=== PATIENT | female | born 1990 | race Caucasian/White ===

== ENCOUNTER 2016-10-11 14:05 | Emergency (ER) | payer OTHER ==
[2016-10-11 14:20] VITALS: BP 127/55; PULSE 71; TEMP 98.1; BMI 33.6
--- NOTE | 2016-10-11 14:44 | PDOC ---
History of Present Illness - General Chief Complaint: Injury Stated Complaint: INJURY Time Seen by Provider: 10/11/16 14:28 History Source: Patient Exam Limitations: No Limitations - History of Present Illness Initial Comments: 10/11/16 14:39 26 yr female with c/o cut to her inside upper lip last night at 11pm at work states the handle form a cart hit into her mouth. 10/11/16 14:44 Occurred: reports: yesterday Severity: reports: mild Method of Injury: Yes: direct blow Modifying Factors: improves with: None Loss of Consciousness: no loss of consciousness Associated Symptoms (Fall): denies symptoms Past History - Past Medical History Allergies/Adverse Reactions: Allergies Allergy/AdvReac Type Severity Reaction Status Date / Time Penicillins Allergy Unknown Rash Verified 10/11/16 14:09 apples Allergy Severe Swelling Uncoded 10/11/16 14:09 Home Medications: Ambulatory Orders NK [No Known Home Medication] 12/02/14 Anemia: No Asthma: Yes Cancer: No Cardiac Disorders: No CVA: No COPD: No CHF: No Dementia: No Diabetes: No GI Disorders: No Disorders: No HTN: No Hypercholesterolemia: No Liver Disease: No Suicide Attempt (Hx): No Seizures: No Thyroid Disease: No - Surgical History Abdominal Surgery: No Appendectomy: No Cardiac Surgery: No Cholecystectomy: No Lung Surgery: No Neurologic Surgery: No Orthopedic Surgery: No - Reproductive History (#): 2 Para: 2 - Immunization History Immunization Up to Date: No - Psycho/Social/Smoking Cessation Hx Anxiety: No Suicidal Ideation: No Smoking Status: No Smoking History: Never smoked Have you smoked in the past 12 months: No Number of Cigarettes Smoked Daily: 0 Cigars Per Day: 0 Information on smoking cessation initiated: No Hx Alcohol Use: No Drug/Substance Use Hx: No Substance Use Type: None Hx Substance Use Treatment: No Trauma Specific PMHX - Complaint Specific PMHX Arthritis: No Back Injury: No Neck Injury: No Hx Sacro Iliac Joint Dysfunction: No Review of Systems - Review of Systems Able to Perform ROS?: Yes Is the patient limited Uzbek proficient: No Constitutional: No: Symptoms Reported HEENTM: Yes: See HPI *Physical Exam - Vital Signs Last Vital Signs Temp Pulse Resp BP Pulse Ox 98.1 F 71 19 127/55 99 10/11/16 14:07 10/11/16 14:07 10/11/16 14:07 10/11/16 14:07 10/11/16 14:07 - Physical Exam General Appearance: Yes: Nourished, Appropriately Dressed HEENT: positive: EOMI, HORTENSIA, Other (frenulum upper lip with superficial laceration 0.5cm no bleeding teeth intact) Neck: positive: Supple. negative: Tender Respiratory/Chest: positive: Lungs Clear, Normal Breath Sounds Cardiovascular: positive: Regular Rhythm, Regular Rate *DC/Admit/Observation/Transfer Diagnosis at time of Disposition: Laceration of mouth Qualifiers: Encounter type: initial encounter Qualified Code(s): S01.512A - Laceration without foreign body of oral cavity, initial encounter - Discharge Dispostion Disposition: HOME Condition at time of disposition: Good - Referrals Referrals: Rupa Hernandez MD [Primary Care Provider] - - Patient Instructions Additional Instructions: gargle with warm salt water 4-5 times a day and after meals soft foods for the next 24hrs ice pops, ice packs to the area of pain every 2hrs for 15 minutes will help with any swelling good oral hygeine will help reduce any bacteria in the wound follow with your dentist as needed
== END 2016-10-11 14:45 | disposition home or self-care (01) ==
LOC: JERFT 14:05
DX: S01.512A Laceration without foreign body of oral cavity, initial encounter (principal); W22.8XXA Striking against or struck by other objects, initial encounter; Y93.89 Activity, other specified; Y92.512 Supermarket, store or market as the place of occurrence of the external cause; Y99.0 Civilian activity done for income or pay
CPT/HCPCS: 99281-25

== ENCOUNTER 2018-06-02 12:02 | Emergency (ER) | payer OTHER ==
--- NOTE | 2018-06-02 12:13 | PDOC ---
Attending Attestation - Resident Resident Name: JagjitGeorgia - ED Attending Attestation I have performed the following: I have examined & evaluated the patient, The case was reviewed & discussed with the resident, I agree w/resident's findings & plan, Exceptions are as noted - HPI HPI: 06/02/18 13:10 Ms Saleh is a 28 yo F who presents to the ER with a complaint of headache Pt reports headache x 10 days, described as throbbing, unilateral, constant, (+ ) nausea, no vomiting. No photophobia, no phonophobia Similar to prior H/A (but typically headaches last 1-2 days, not this long) Has been taking Excedrin (500 mg) with little relief of her headache prompting her to come to the ED today. No fevers or chills No neck pain No head trauma 06/03/18 07:47 - Physicial Exam PE: 06/02/18 13:12 GENERAL: The patient is in no acute distress. HEAD: Normal EYES: PERRLA, EOMI, sclera anicteric, conjunctiva clear. ENT: Ears normal, nares patent, oropharynx clear without exudates. Moist mucous membranes. NECK: Normal range of motion, supple LUNGS: Breath sounds equal, clear to auscultation bilaterally. HEART:Regular rate and rhythm, normal S1 and S2 without murmur, rub or gallop. ABDOMEN: Soft, nontender, normoactive bowel sounds. EXTREMITIES: Normal range of motion NEUROLOGICAL: Cranial nerves II through XII grossly intact. Normal speech. No focal neurological deficits. SKIN: Warm, Dry, - Medical Decision Making 06/03/18 07:50 Laboratory Tests 06/02/18 12:40 Urine HCG, Qual Negative Pt given: Toradol, Reglan, Benadryl, IVF Pt re assessed Headache has resolved Pt asked to follow up with Neurologist Return to the ER for any other concerns or complaints Clinical Impression: migraine, initial presentation
[2018-06-02 12:16] VITALS: BP 122/82; PULSE 65; TEMP 98.3; BMI 35.1
--- NOTE | 2018-06-02 12:28 | PDOC ---
History of Present Illness - General Chief Complaint: Migraine Headache Stated Complaint: MIGRAINE HEADACHE Time Seen by Provider: 06/02/18 12:12 - History of Present Illness Initial Comments: 06/02/18 12:27 The patient is a 28 year old female who presents with a 10 day h/o headache. Patient states the headache is throbbing, unilateral, constant, global with associated nausea but no vomiting. No photophobia, visual changes, AMS. States headache pain is consistent w/previous headaches which she experiences weekly that usually last 1-2 days. Has been taking Excedrin (500 mg) as much as 6 times daily with little relief of her headache prompting her to come to the ED today. The patient denies any recent head trauma/injury, neck pain, neck stiffness, trouble sleeping or walking. The patient further denies any chest pain, shortness of breath, abdominal pain, nausea/vomiting, diarrhea/ constipation, dysuria/hematuria. Allergy: Penicillin Social: denies toxic habits As per EMR, patient evaluated for headache in [address] and subsequent MRI were negative for aneursym. Patient discharged home to follow up with neurology. Patient states she did see the neurologist for an evaluation but did not follow-up for further evaluation. 06/02/18 15:35 Past History - Past Medical History Allergies/Adverse Reactions: Allergies Allergy/AdvReac Type Severity Reaction Status Date / Time Penicillins Allergy Unknown Rash Verified 06/02/18 12:10 apples Allergy Severe Swelling Uncoded 06/02/18 12:10 Home Medications: Ambulatory Orders Albuterol Sulfate Inhaler - [Ventolin Hfa Inhaler -] 2 inh PO Q6H PRN 06/02/18 Aspirin/Acetaminophen/Caffeine [Excedrin Migraine Caplet] 2 each PO PRN PRN Anemia: No Asthma: Yes Cancer: No Cardiac Disorders: No CVA: No COPD: No CHF: No Dementia: No Diabetes: No GI Disorders: No Disorders: No HTN: No Hypercholesterolemia: No Liver Disease: No Seizures: No Thyroid Disease: No Other medical history: HEADACHES - Surgical History Abdominal Surgery: No Appendectomy: No Cardiac Surgery: No Cholecystectomy: No Lung Surgery: No Neurologic Surgery: No Orthopedic Surgery: No - Reproductive History (#): 2 Para: 2 - Immunization History Immunization Up to Date: No - Suicide/Smoking/Psychosocial Hx Smoking Status: No Smoking History: Never smoked Have you smoked in the past 12 months: No Number of Cigarettes Smoked Daily: 0 Cigars Per Day: 0 Hx Alcohol Use: Yes (SOCIAL) Drug/Substance Use Hx: No Substance Use Type: None Hx Substance Use Treatment: No *Physical Exam - Vital Signs Last Vital Signs Temp Pulse Resp BP Pulse Ox 98.3 F 65 16 122/82 99 06/02/18 12:08 06/02/18 12:08 06/02/18 12:08 06/02/18 12:08 06/02/18 12:08 - Physical Exam Comments: 06/02/18 15:25 GENERAL: (+) Uncomfortable appearing. The patient is awake, alert, and fully oriented, in no acute distress. HEAD: Normal with no signs of trauma. EYES: Pupils equal, round and reactive to light, extraocular movements intact, sclera anicteric, conjunctiva clear with no pallor. ENT: Ears normal, nares patent, oropharynx clear without exudates. Moist mucous membranes. NECK: Normal range of motion, supple without lymphadenopathy, JVD, or masses. LUNGS: Breath sounds equal, clear to auscultation bilaterally. No wheeze/ crackles. HEART: Regular rate and rhythm, normal S1 and S2 without murmur or rub. ABDOMEN: Soft/nontender/nondistended. BS wnl. No guarding or rebound. No palpable masses. No hepatosplenomegaly. EXTREMITIES: Normal range of motion, no edema. No clubbing or cyanosis. No cords, erythema, or tenderness. NEUROLOGICAL: Mental status: The patient is alert and oriented x3. Cranial nerves: Cranial nerves II through XII are intact Motor: The upper extremities are 5 over 5 in all muscle groups. The lower extremities are 5 over 5 in all muscle groups. No pronator drift. Sensation: Sensation is intact to light touch throughout. Cerebellar: [id number] is normal in both upper extremities. Reflexes: 2+ and symmetric in the upper and lower extremities. PSYCH: Normal mood, normal affect. SKIN: Warm, Dry, normal turgor, no rashes or lesions noted. Moderate Sedation - Procedure Monitoring Vital Signs: Procedure Monitoring Vital Signs Temperature 98.3 F 06/02/18 12:08 Pulse Rate 65 06/02/18 12:08 Respiratory Rate 16 06/02/18 12:08 Blood Pressure 122/82 02/23/19 12:08 O2 Sat by Pulse Oximetry (%) 99 06/02/18 12:08 Medical Decision Making - Medical Decision Making 06/02/18 12:36 28 year old female with migraine. VS unremarkable. No fever, neck stiffness, reports pain c/w previous migraines. Frontal diagnosis: Migraine vs. SAH (less likely) vs. CVA (less likey) Urine + headache cocktail. Will refrain from CT at this time given previous imaging and clinical picture c/w headache. Reassess. 06/02/18 13:46 Patient reassessed @ bedside Symptomatically improved, ambulatory. Will discharge home with neurology follow-up and return precautions. *DC/Admit/Observation/Transfer Diagnosis at time of Disposition: Headache - Discharge Dispostion Disposition: HOME Condition at time of disposition: Good Decision to Admit order: No - Referrals Referrals: Davon Zapien MD [Staff Physician] - - Patient Instructions Printed Discharge Instructions: DI for Migraine Additional Instructions: Please make an appointment with Dr. Zapien (a neurologist) for evaluation of your headaches or you can call your insurance company for a list of referrals. You can take Tylenol (up to 3200 mg daily) for your headaches. We have provided discharge instructions for a headache which includes limiting screen time (phone/television/computer) as well as getting plenty of sleep and drinking fluid. Return to the Emergency Department for any new/worsening/concerning symptoms. - Post Discharge Activity
[2018-06-02] MEDS ORDERED: KETOROLAC TROMETHAMINE 30 MG/1 ML VIAL IVPUSH ONE (12:31)
[2018-06-02] MEDS ORDERED: METOCLOPRAMIDE HCL INJECTION 10 MG/2 ML VIAL IVPUSH ONE (12:31)
[2018-06-02] MEDS ORDERED: KETOROLAC TROMETHAMINE 30 MG/1 ML VIAL ONE (12:40)
[2018-06-02] MEDS ORDERED: METOCLOPRAMIDE HCL INJECTION 10 MG/2 ML VIAL ONE (12:40)
== END 2018-06-02 14:08 | disposition home or self-care (01) ==
LOC: FER 12:02
PROC: 3E033GC Introduction of Other Therapeutic Substance into Peripheral Vein, Percutaneous Approach (ICD-10-PCS; principal; 2018-06-02)
PROC: 3E0333Z Introduction of Anti-inflammatory into Peripheral Vein, Percutaneous Approach (ICD-10-PCS; 2018-06-02)
DX: R51 Headache (principal); J45.909 Unspecified asthma, uncomplicated
CPT/HCPCS: 84703; 99282-25

== ENCOUNTER 2018-06-04 09:45 | Emergency (ER) | payer OTHER ==
--- NOTE | 2018-06-04 09:49 | PDOC ---
Attending Attestation - Resident Resident Name: Mick Harris - ED Attending Attestation I have performed the following: I have examined & evaluated the patient, The case was reviewed & discussed with the resident, I agree w/resident's findings & plan, Exceptions are as noted - HPI HPI: 06/04/18 10:35 28yo female with kim x 10 days. Hx of migraine kim. States she was sick about a month ago, then her daughter had the flu. Denies f/c. C/o rhinorrhea and a nonproductive cough. Pt denies neck pain. States pain across her L side of her head. States she did change her diet a few weeks ago and cut out carbs thinking they were causing her kim. States she gets 2-3 kim a month. Has seen neuro in the past, but never followed up with them. Currently does not have a PMD. Pt was seen in the ED on monday- given meds and kim resolved, but states kim returned last night w 2 episodes of n/v. Pt denies cp/sob. No abd pain. No nausea now. No dysuria. No sore throat. No diarrhea. Pt denies neuro complaints other than kim. No dizziness. Ambulates with a steady gait. - Physicial Exam PE: 06/04/18 10:39 Gen: aaox3, nad heent: PERRL, EOMI, MMM, posterior pharynx no exudates or erythema, mild post nasal gtt, tm intact - no effusion, no bulging, no erythema, no rash, no vesicles neck: supple, no meningeal signs, no lymphadenopathy heart: +s1s2 reg lungs: cta b/l abd: soft, nt/nd +bs ext: no c/c/e neuro: cn ii-xii grossly intact, muscle strength 5/5 ue and le, sensation intact , ambulates with a steady gait skin: no rashes - Medical Decision Making 06/04/18 09:49 I, Dr. Maria E Weber, DO, attest that this document has been prepared under my direction and personally reviewed by me in its entirety. I further attest, that it accurately reflects all work, treatment, procedures and medical decision -making performed by me. 06/04/18 10:42 a/p: 28yo female with kim x 10 days -hx of migraines -prior mri/mra/ct scan reviewed -no focal neuro findings -no meningeal signs -will give reglan, ivf hydration -will monitor and reassess -pt is nontoxic in appearance 06/04/18 11:09 preg test negative 2 days ago 06/04/18 11:33 pt feeling better kim resolved given po challenge pt resting comfortably at this time 06/04/18 12:02 pt ambulated to the bathroom with a steady gait 06/04/18 12:25 pt feeling much better requesting to go home stable for dc to home neuro intact
[2018-06-04 09:55] VITALS: BP 136/80; PULSE 92; TEMP 98.4; BMI 35.1
[2018-06-04] MEDS ORDERED: BUPIVACAINE HCL/PF (5 MG/ML) 30 ML VIAL IJ ONE (10:10)
[2018-06-04] MEDS ORDERED: LACTATED RINGERS SOLUTION 1000 ML INFUS.BAG IV ONE (10:10)
[2018-06-04] MEDS ORDERED: METOCLOPRAMIDE HCL INJECTION 10 MG/2 ML VIAL IVPUSH ONE (10:11)
[2018-06-04] MEDS ORDERED: BUPIVACAINE HCL/PF 0.5% (5MG/ML) 10 ML VIAL ONE (10:13)
[2018-06-04] MEDS ORDERED: METOCLOPRAMIDE HCL INJECTION 10 MG/2 ML VIAL ONE (10:16)
--- NOTE | 2018-06-04 11:06 | PDOC ---
History of Present Illness - General Chief Complaint: Headache Stated Complaint: HEADACHE Time Seen by Provider: 06/04/18 09:47 History Source: Patient, Old Records Exam Limitations: No Limitations - History of Present Illness Initial Comments: HPI: 28 y/o female presenting to [facility] for second visit for left sided headache. Pt states the pain is localized to the left frontal region but moves across the forehead when coughing. Endorses photophobia and nausea without vomiting. Was evaluated at this facility on Monday (02 Jun 2018) for similar symptoms. Reports pain improved after ED visit but returned last evening. Attempted relief with CBD oil with limited success. Endorses a long history of migraines; approx. 1-2 a month that normally respond to Excedrin. Was referred to a neurologist but was unhappy with initial visit so she did not follow up. New neurology referral was placed following last ED visit. Medical Hx: - Migraines Denies prescription medications. Past History - Past Medical History Allergies/Adverse Reactions: Allergies Allergy/AdvReac Type Severity Reaction Status Date / Time Penicillins Allergy Unknown Rash Verified 06/02/18 12:10 apples Allergy Severe Swelling Uncoded 06/02/18 12:10 Home Medications: Ambulatory Orders Albuterol Sulfate Inhaler - [Ventolin Hfa Inhaler -] 2 inh PO Q6H PRN 06/02/18 Aspirin/Acetaminophen/Caffeine [Excedrin Migraine Caplet] 2 each PO PRN PRN Anemia: No Asthma: Yes Cancer: No Cardiac Disorders: No CVA: No COPD: No CHF: No Dementia: No Diabetes: No GI Disorders: No Disorders: No HTN: No Hypercholesterolemia: No Liver Disease: No Seizures: No Thyroid Disease: No Other medical history: HEADACHES - Surgical History Abdominal Surgery: No Appendectomy: No Cardiac Surgery: No Cholecystectomy: No Lung Surgery: No Neurologic Surgery: No Orthopedic Surgery: No - Reproductive History (#): 2 Para: 2 - Immunization History Immunization Up to Date: No - Suicide/Smoking/Psychosocial Hx Smoking Status: No Smoking History: Never smoked Have you smoked in the past 12 months: No Number of Cigarettes Smoked Daily: 0 Cigars Per Day: 0 Hx Alcohol Use: Yes (SOCIAL) Drug/Substance Use Hx: No Substance Use Type: None Hx Substance Use Treatment: No Review of Systems - Review of Systems Able to Perform ROS?: Yes Comments:: In addition to that documented in the HPI above, the additional ROS was obtained : Constitutional: Denies fevers or chills Eyes: Denies vision or hearing changes ENMT: Denies sore throat or neck stiffness CV: Denies chest pain Resp: Denies SOB GI: Denies vomiting or diarrhea : Denies painful urination MSK: Denies recent trauma Skin: Denies new rashes Neuro: Denies new numbness or tingling or weakness Endocrine: Denies polyuria Heme: Denies bleeding or bruising *Physical Exam - Vital Signs Last Vital Signs Temp Pulse Resp BP Pulse Ox 98.4 F 92 H 16 136/80 99 06/04/18 09:46 06/04/18 09:46 06/04/18 09:46 06/04/18 09:46 06/04/18 09:46 - Physical Exam Comments: Constitutional: Well-developed, well-nourished adult female iin no acute distress or obvious discomfort. Obese body habitus. Appearing of stated age. Found semi-fowlers on hospital bed. Alert and oriented x4. Answered all questions appropriately and completely. Speech was non-labored, non-pressured. Head: Normocephalic. No obvious external signs of trauma. No tenderness to R and L frontal and maxillary sinuses. Eyes: Pupils 4mm and PERRL bilaterally. EOMI. Sclerae white. Conjunctiva moist and not injected. Ears: External auditory canals and tympanic membranes clear. Hearing grossly intact. Nose: No nasal discharge. Neck: Supple, trachea is midline. No cervical lymphadenopathy. Cardiovascular / Chest: Regular rate and regular rhythm. No murmur, rubs, clicks, or gallops. Peripheral pulses: radial pulses full. Respiratory: Breathing unlabored. Equal chest rise and fall. Clear to auscultation bilaterally. No stridor, no wheezing, no rhonchi. Neuro: Alert and oriented. Moving all four extremities spontaneously. No focal deficits. Cranial nerves intact. Sensation to all four extremities intact. Intact rapid alternating movements, finger to nose, and heel to franks. Upper and lower extremity: proximal and distal strength 5/5. Administrative Clerk strength 5/5 - equal and symmetric. Plantar flexion and dorsiflexion 5/5. No nuchal rigidity. Gait normal. Skin: Warm, dry, and intact. Psych: Affect: appropriate. Mood: normal. Moderate Sedation - Procedure Monitoring Vital Signs: Procedure Monitoring Vital Signs Temperature 98.4 F 06/04/18 09:46 Pulse Rate 92 H 06/04/18 09:46 Respiratory Rate 16 06/04/18 09:46 Blood Pressure 136/80 06/04/18 09:46 O2 Sat by Pulse Oximetry (%) 99 06/04/18 09:46 Procedures - Additional Procedures Progress: Sphenopalatine Ganglion Nerve Block, Left INDICATION: Left-sided headache PROCEDURE SOFTWARE INTERN: Mick Harris M.D. resident CONSENT: Consent was obtained from pt prior to the procedure. Indications, risks, and benefits were explained at length. PROCEDURE SUMMARY: Patient was positioned appropriately in the sniffing position. 2cc Bupivacaine 0.5% was applied to cotton tipped applicator. Middle turbinate was identified visually. Applicator was slowly advanced until resistance was met. Applicator was left in place for approx. 5 minutes before being removed. Pt tolerated procedure well. No bleeding. ED Treatment Course - Medications Given in the ED: ED Medications Discontinued Medications Generic Name Dose Route Start Last Admin Trade Name Freq PRN Reason Stop Dose Admin Bupivacaine HCl 5 mg 06/04/18 10:10 06/04/18 10:44 Bupivacaine 0.5% Vial IJ 06/04/18 10:11 5 mg NOW ONE Administration Diphenhydramine HCl 25 mg 06/04/18 10:11 06/04/18 10:35 Benadryl Injection - IVPB 06/04/18 10:12 25 mg ONCE ONE Administration Lactated Ringer's 500 ml 06/04/18 10:10 06/04/18 10:30 Lactated Ringers Solution IV 06/04/18 10:11 500 ml ONCE ONE Administration Metoclopramide HCl 10 mg 06/04/18 10:11 06/04/18 10:37 Reglan Injection - IVPUSH 06/04/18 10:12 10 mg ONCE ONE Administration Medical Decision Making - Medical Decision Making *Reviewed vital signs, nursing notes, and prior visit documentation (if available). 28 y/o female complaining of left sided headache similar to previous migraines. Pt had CT, MRI, and MRA obtained for symptoms in 2016 without acute findings. No red flags on interview. Neurologically intact on exam. Afebrile. Vitals unremarkable for hypotension or tachycardia. Will not repeat imaging. Ordered Reglan, Benadryl, and IVFB. Will perform SPG block. UPreg was negative at last visit. Will not repeat. Pt reassessed. Reports the headache has significantly improved and she feels ready to go home. Provided second referral to Dr. Zapien for neurology follow up. *DC/Admit/Observation/Transfer Diagnosis at time of Disposition: Headache Qualifiers: Headache type: unspecified Headache chronicity pattern: unspecified pattern Intractability: not intractable Qualified Code(s): R51 - Headache - Discharge Dispostion Disposition: HOME Condition at time of disposition: Good Decision to Admit order: No - Referrals Referrals: Davon Zapien MD [Staff Physician] - - Patient Instructions Printed Discharge Instructions: DI for Headache Additional Instructions: You were seen today for a headache similar to your past migraines. Your were given Reglan and Benadryl, as well as a Bupivacaine via SPG block. You should avoid your typical migraine triggers. You can take over the counter Tylenol or Advil as needed for pain. Take as directed on the package insert. Do not exceed the recommended dosage. Follow up with Dr. Zapien, a neurologist. You will need to call to make an appointment. The number is included in this packet. You can also follow up with your primary care doctor. Go to the nearest emergency department if your condition worsens or you feel like you need additional emergency evaluation. Print Language: ROMANIAN - Post Discharge Activity Forms/Work/School Notes: Back to Work
== END 2018-06-04 13:01 | disposition home or self-care (01) ==
LOC: FER 09:45
PROC: 3E033GC Introduction of Other Therapeutic Substance into Peripheral Vein, Percutaneous Approach (ICD-10-PCS; principal; 2018-06-04)
PROC: 3E0337Z Introduction of Electrolytic and Water Balance Substance into Peripheral Vein, Percutaneous Approach (ICD-10-PCS; 2018-06-04)
PROC: 3E033NZ Introduction of Analgesics, Hypnotics, Sedatives into Peripheral Vein, Percutaneous Approach (ICD-10-PCS; 2018-06-04)
DX: R51 Headache (principal); J45.909 Unspecified asthma, uncomplicated
CPT/HCPCS: 96361; 96372; 96374; 96375; 99282-25

== ENCOUNTER 2018-06-07 15:20 | Emergency (ER) | payer OTHER ==
[2018-06-07 15:28] VITALS: BP 130/86; PULSE 71; BMI 35.1
--- NOTE | 2018-06-07 15:40 | PDOC ---
History of Present Illness - General Chief Complaint: Headache Stated Complaint: HEADACHE Time Seen by Provider: 06/07/18 15:40 History Source: Patient Exam Limitations: No Limitations - History of Present Illness Initial Comments: 06/07/18 15:57 28 year old female with PMH migraine headaches, asthma presented to ED for headache. Pt has been seen in ED for similar complaint on 06/04/18 and 06/02/18 , pt was given reglan/tylenol/IV fluids with improvement of headache. Pt was informed to follow up with PCP and neurologist. Pt stated she has an appointment with the neurologist in July but has not called to follow up with PCP. Pt admitted to sensitivity to light and sound, pain around eyes, throbbing , intermittent nausea. Pt denied numbness, weakness, tingling, chest pain, shortness of breath. Allergies: NKDA Past History - Past Medical History Allergies/Adverse Reactions: Allergies Allergy/AdvReac Type Severity Reaction Status Date / Time Penicillins Allergy Unknown Rash Verified 06/02/18 12:10 amoxicillin Allergy Rash Verified 06/07/18 15:22 Home Medications: Ambulatory Orders Albuterol Sulfate Inhaler - [Ventolin Hfa Inhaler -] 2 inh PO Q6H PRN 06/02/18 Aspirin/Acetaminophen/Caffeine [Excedrin Migraine Caplet] 2 each PO PRN PRN Ibuprofen 800 mg PO TID #12 tablet 06/07/18 Anemia: No Asthma: Yes Cancer: No Cardiac Disorders: No CVA: No COPD: No CHF: No Dementia: No Diabetes: No GI Disorders: No Disorders: No HTN: No Hypercholesterolemia: No Liver Disease: No Seizures: No Thyroid Disease: No - Surgical History Abdominal Surgery: No Appendectomy: No Cardiac Surgery: No Cholecystectomy: No Lung Surgery: No Neurologic Surgery: No Orthopedic Surgery: No - Reproductive History (#): 2 Para: 2 - Immunization History Immunization Up to Date: No - Suicide/Smoking/Psychosocial Hx Smoking Status: No Smoking History: Never smoked Have you smoked in the past 12 months: No Number of Cigarettes Smoked Daily: 0 Cigars Per Day: 0 Information on smoking cessation initiated: No Hx Alcohol Use: (social) Drug/Substance Use Hx: No Substance Use Type: None Hx Substance Use Treatment: No Review of Systems - Review of Systems Able to Perform ROS?: Yes Comments:: 06/07/18 15:59 General: denied fever, chills, night sweats, generalized weakness. HEENT: denied sore throat, rhinorrhea, ear pain. Heart: denied chest pain, palpitations, syncope, diaphoresis. Respiratory: denied shortness of breath, cough, sputum production, hemoptysis. Abdomen: denied abdominal pain, nausea, vomiting, diarrhea, constipation, blood in stool. : denied dysuria, increased urinary frequency, hematuria, urinary incontinence , flank pain. Back: denied back pain. Musculoskeletal: denied joint pain, muscle pain, joint swelling. Neurological: admitted to headache. denied dizziness, numbness, tingling, weakness. Skin: denied rash, laceration, abrasion. *Physical Exam - Vital Signs Last Vital Signs Temp Pulse Resp BP Pulse Ox 71 18 130/86 99 06/07/18 15:20 06/07/18 15:20 06/07/18 15:20 06/07/18 15:20 - Physical Exam Comments: 06/07/18 15:59 Constitutional: Well-nourished, Well-developed, appearing stated age. HEENT: head is normocephalic, atraumatic. EOMI. PERRLA. Neck: supple. Full ROM. Heart: regular rhythm. no murmurs, rubs or gallops. Lungs: clear to auscultation bilaterally. no crackles, rhonchi or wheezing. no stridor. Abdomen: soft, nontender. normal bowel sounds. no rebound, guarding, masses. Extremities: Peripheral pulses intact. No lower extremity edema. Neurological: Alert. Oriented x3. CN2-12 intact. 5/5 strength all extremities. Full sensation all extremities and bilateral face. No ataxia. Gait normal. Psych: awake, alert, oriented x3. Follows commands. Answers questions appropriately. Moderate Sedation - Procedure Monitoring Vital Signs: Procedure Monitoring Vital Signs Temperature Pulse Rate 71 06/07/18 15:20 Respiratory Rate 18 06/07/18 15:20 Blood Pressure 130/86 06/07/18 15:20 O2 Sat by Pulse Oximetry (%) 99 06/07/18 15:20 Medical Decision Making - Medical Decision Making 06/07/18 16:00 28 year old female with above PMH presented to ED for headache. Pt has been seen for same complaint multiple times. No CT head was performed. Last MRI 2015. Initial Vital Signs Pulse Resp BP Pulse Ox 71 18 130/86 99 06/07/18 15:20 06/07/18 15:20 06/07/18 15:20 06/07/18 15:20 Afebrile. No tachycardia. No tachypnea. Mild hypertension. No hypoxia on room air. Urine test 06/02/18 negative. Labs ordered: urine test Imaging ordered: CT head Medications ordered: reglan, benadryl, tylenol, normal saline bolus 1000 cc 06/07/18 16:43 Urine testing negative. Pt to proceed to CT. 06/07/18 17:41 CT head report: no change from 02/18/2016, no discrete noncontrast CT pathology. left sphenoid and mild right sphenoid sinus opacification, consistent with sinusitis. Pt informed of results. Pt reported she is feeling better. Pt discharged. Discharge medication: ibuprofen 800 mg TID *DC/Admit/Observation/Transfer Diagnosis at time of Disposition: Sinusitis, Headache - Discharge Dispostion Disposition: HOME Condition at time of disposition: Improved Decision to Admit order: No - Prescriptions Prescriptions: Ibuprofen 800 mg PO TID #12 tablet - Referrals Referrals: Ronald Temple MD [Staff Physician] - - Patient Instructions Printed Discharge Instructions: DI for Sinusitis, DI for Headache Additional Instructions: Your head CT showed sinusitis. Take tylenol 1000 mg every 8 hours as needed for pain. I have sent a prescription for ibuprofen to your pharmacy, take as advised on label. Drink lots of fluids, like water, to stay hydrated. Get at least 8 hours of sleep a night. You need to see a primary care doctor, I have provided you with a referral for one, call their office tomorrow first thing and ask for the soonest appointment. I have provided you with referrals for more neurologists, call and get an appointment in the next 1-4 days. Return to the Emergency Department for fever>104F with tylenol use, fever>5 days, weakness , numbness, tingling, chest pain, shortness of breath, drooping of face, decreased sensation or any other new, worsening or concerning symptoms. - Post Discharge Activity Forms/Work/School Notes: Back to Work
[2018-06-07] MEDS ORDERED: SODIUM CHLORIDE 1,000 ML IV STA (16:01)
[2018-06-07] MEDS ORDERED: METOCLOPRAMIDE HCL INJECTION 10 MG/2 ML VIAL IVPUSH ONE (16:01)
[2018-06-07] MEDS ORDERED: ACETAMINOPHEN 1000 MG/100 ML VIAL (NON FORMULARY) IVPB ONE (16:01)
--- NOTE | 2018-06-07 16:01 | PDOC ---
Attending Attestation - Resident Resident Name: Anaih Padilla - HPI HPI: 06/09/18 20:46 Pt presents to the ED complaining of diffuse frontal headache with nausea and vomiting and photophobia. Patient has been seen in the ED x 2 for the same complaint. Headache resolves in the ED after reglan and IVF, but then recurrs at home. She was given neuro follow up on her last visit, but cannot be seen until July. She has not been taking any medication for the pain. - Physicial Exam PE: 06/09/18 20:48 Agree with resident exam. Patient is alert and in no acute distress. Heart: regular rate and rhythm. Lungs: clear. Abdomen: soft, non tender, non distended. Neuro: alert and oriented x 3, ambulatory with steady gait, CN intact. - Medical Decision Making 06/09/18 20:49 Pt presents to the ED with recurrent migraine. Since this was her third visit for the same complaint, CT head performed to rule out intracranial pathology and is negative. CARBONE resolved in the ED after reglan. Will discharge home with neuro follow up. Will give rx for motrin to be used for recurrent migrane at home.
[2018-06-07] MEDS ORDERED: ACETAMINOPHEN INJECTION 100 ML IVPB ONE (16:07)
[2018-06-07] MEDS ORDERED: METOCLOPRAMIDE HCL INJECTION 10 MG/2 ML VIAL ONE (16:07)
== END 2018-06-07 18:10 | disposition home or self-care (01) ==
LOC: FER 15:20
PROC: 3E033NZ Introduction of Analgesics, Hypnotics, Sedatives into Peripheral Vein, Percutaneous Approach (ICD-10-PCS; principal; 2018-06-07)
PROC: 3E033GC Introduction of Other Therapeutic Substance into Peripheral Vein, Percutaneous Approach (ICD-10-PCS; 2018-06-07)
PROC: 3E0337Z Introduction of Electrolytic and Water Balance Substance into Peripheral Vein, Percutaneous Approach (ICD-10-PCS; 2018-06-07)
DX: J32.9 Chronic sinusitis, unspecified (principal); R51 Headache
CPT/HCPCS: 70450-TC; 84703; 99284-25; J0131; J7030

== ENCOUNTER 2018-07-03 08:15 | Emergency (ER) | payer OTHER ==
[2018-07-03 08:32] VITALS: BP 121/75; PULSE 90; TEMP 98.4; BMI 34.0
--- NOTE | 2018-07-03 09:53 | PDOC ---
History of Present Illness - General Chief Complaint: Lice Stated Complaint: LICE Time Seen by Provider: 07/03/18 08:55 History Source: Patient Exam Limitations: Clinical Condition - History of Present Illness Initial Comments: 07/03/18 08:55 Patient with no significant PMhx present with complains of head lice. Patient report 2 children with head lice and had outbreak of lice at school. Denies any other symptoms. Patient did not do anything for lice Timing/Duration: reports: 24 hours Past History - Past History Allergies/Adverse Reactions: Allergies Penicillins Allergy (Unknown, Verified 07/03/18 08:29) Rash amoxicillin Allergy (Verified 07/03/18 08:29) Rash Home Medications: Ambulatory Orders Permethrin [Lice Treatment] 1 applic TP ONCE #1 bottle 07/03/18 Immunization Status Up to Date: No Tetanus Status: Unknown - Social History Smoking History: No Smoking Status: Smoker current status UNK Number of Cigarettes Smoked Per Day: 0 Number of Cigars Per Day: 0 Review of Systems - Review of Systems Able to Perform ROS?: Yes Is the patient limited Danish proficient: No Constitutional: No: Fever, Malaise HEENTM: No: Symptoms Reported, See HPI, Eye Pain, Blurred Vision, Tearing, Recent change in vision, Double Vision, Cataracts, Ear Pain, Ocular Prothesis, Ear Discharge, Nose Pain, Nose Congestion, Tinnitus, Nose Bleeding, Hearing Loss , Throat Pain, Throat Swelling, Mouth Pain, Dental Problems, Difficulty Swallowing, Mouth Swelling, Other Respiratory: No: Symptoms reported, See HPI, Cough, Orthopnea, Shortness of Breath, SOB with Exertion, SOB at Rest, Stridor, Wheezing, Productive cough, Hemoptysis, Other Cardiac (ROS): No: Symptoms Reported, See HPI, Chest Pain, Edema, Irregular Heart Rate, Lightheadedness, Palpitations, Syncope, Chest Tightness, Other ABD/GI: No: Symptoms Reported Musculoskeletal: No: Symptoms Reported Integumentary: Yes: See HPI, Other (head lice) All Other Systems: Reviewed and Negative *Physical Exam - Vital Signs Last Vital Signs Temp Pulse Resp BP Pulse Ox 98.4 F 90 20 121/75 96 07/03/18 08:29 07/03/18 08:29 07/03/18 08:29 07/03/18 08:29 07/03/18 08:29 - Physical Exam General Appearance: Yes: Nourished, Appropriately Dressed. No: Apparent Distress HEENT: positive: Normal ENT Inspection, Other (multiple knits for lice eggs in hair) Respiratory/Chest: positive: Lungs Clear, Normal Breath Sounds. negative: Respiratory Distress, Accessory Muscle Use Cardiovascular: positive: Regular Rhythm, Regular Rate Musculoskeletal: positive: Normal Inspection Integumentary: positive: Normal Color Neurologic: positive: Fully Oriented, Alert, Normal Response Medical Decision Making - Medical Decision Making 07/05/18 14:57 Patient with no significant PMhx present with complains of head lice. Patient report 2 children with head lice and had outbreak of lice at school. Denies any other symptoms. Patient did not do anything for lice. multiple knits from lice eggs in hair on exam. patient stable for outpatient management with permectrim shampoo with PCP follow-up *DC/Admit/Observation/Transfer Diagnosis at time of Disposition: Pediculosis capitis - Discharge Dispostion Disposition: HOME Condition at time of disposition: Stable Decision to Admit order: No - Prescriptions Prescriptions: Permethrin [Lice Treatment] 1 applic TP ONCE #1 bottle - Referrals - Patient Instructions Printed Discharge Instructions: DI for Head Lice Additional Instructions: Use prescribed medication as prescribed for head lice. Wash all clothes in warm water and wiped down everything with Clorox wipes. Repeat treatment with medication after week. Follow-up with PCP as needed - Post Discharge Activity Forms/Work/School Notes: Back to Work
== END 2018-07-03 10:16 | disposition home or self-care (01) ==
LOC: JERFT 08:15
DX: B85.0 Pediculosis due to Pediculus humanus capitis (principal)
CPT/HCPCS: 99281-25